=== PATIENT | female | born 1980 | race African-American/Black ===

== ENCOUNTER 2019-05-12 22:04 | Emergency (ER) | payer SELFPAY ==
[2019-05-13 00:48] LABS: ABSOLUTE BASOPHILS # (AUTO) 0.1 10^3/uL (0.0-0.2); ABSOLUTE EOSINOPHILS # (AUTO) 0.2 10^3/uL (0.0-0.6); ABSOLUTE LYMPHOCYTES (AUTO) 3.2 10^3/uL (0.5-4.7); ABSOLUTE MONOCYTES (AUTO) 1.1 10^3/uL (0.1-1.4); ABSOLUTE NEUT (AUTO) 10.9 10^3/uL (1.7-8.2); BASOPHILS % (AUTO) 0.5 % (0-2); EOSINOPHILS % (AUTO) 1.2 % (0-6); HEMATOCRIT 34.5 % (36.0-47.0); HEMOGLOBIN 11.9 g/dL (12.0-15.5); LYMPHOCYTES % (AUTO) 20.6 % (13-45); MEAN CORPUSCULAR HEMOGLOBIN 30.1 pg (27.0-33.4); MEAN CORPUSCULAR HGB CONC 34.4 g/dL (32.0-36.0); MEAN CORPUSCULAR VOLUME 88 fl (80-97); PLATELET COUNT 264 10^3/uL (150-450); RED BLOOD COUNT 3.95 10^6/uL (3.72-5.28); RED CELL DISTRIBUTION WIDTH 13.6 % (11.5-14.0); SEGMENTED NEUTROPHILS % (AUTO) 70.7 % (42-78); TOTAL CELLS COUNTED % (AUTO) 100 %; WHITE BLOOD COUNT 15.4 10^3/uL (4.0-10.5)
[2019-05-13 00:51] LABS: APPEARANCE,URINE SLIGHTLY-CLOUDY; BILIRUBIN,URINE NEGATIVE (NEGATIVE); COLOR,URINE YELLOW; GLUCOSE, URINE NEGATIVE (NEGATIVE); KETONES,URINE NEGATIVE (NEGATIVE); LEUKOCYTE ESTERASE,URINE NEGATIVE (NEGATIVE); NITRITE,URINE NEGATIVE (NEGATIVE); PROTEIN,URINE NEGATIVE (NEGATIVE); URINE SPECIFIC GRAVITY 1.016; UROBILINOGEN,URINE NEGATIVE mg/dL (<2.0)
[2019-05-13 01:16] LABS: ALBUMIN 4.2 g/dL (3.5-5.0); ALKALINE PHOSPHATASE 46 U/L (38-126); ANION GAP 10 (5-19); ASPARTATE AMINO TRANSFERASE 19 U/L (14-36); BILIRUBIN,DIRECT 0.2 mg/dL (0.0-0.4); BILIRUBIN,TOTAL 0.3 mg/dL (0.2-1.3); BLOOD UREA NITROGEN 6 mg/dL (7-20); CALCIUM 9.5 mg/dL (8.4-10.2); CARBON DIOXIDE 25 mmol/L (22-30); CHLORIDE 105 mmol/L (98-107); GLUCOSE 84 mg/dL (75-110); POTASSIUM 3.4 mmol/L (3.6-5.0)
--- NOTE | 2019-05-13 03:18 | RADIOLOGY REPORT (SQ) ---
EXAM DESCRIPTION: US TRANSVAGINAL COMPLETED DATE/TME: 05/13/2019 00:32 CLINICAL HISTORY: 39 years, Female, lmp nov 8, , vaginal bleeding COMPARISON: None. TECHNIQUE: Emergent OB ultrasound LIMITATIONS: None. FINDINGS: The uterus measures 10.7 x 5.9 x 7.1 cm. There is an intrauterine gestational sac with pole and heart tones obtained at 136 bpm. The maternal right ovary measures 4.3 x 1.4 x 1.7 cm. Normal flow to the right ovary. Left ovary is not well seen likely due to its position in the pelvis. Probable corpus luteal cyst as well as possible paraovarian cyst on the right, measuring 1.8 x 1.2 cm. There is a 1.6 x 1.8 cm hypoechoic area adjacent to the gestational sac which may reflect small subchorionic hemorrhage. No free fluid in the pelvis. Current ultrasound age is 7 weeks 1 day. IMPRESSION: Single live IUP as above. Probable small subchorionic hemorrhage. Close obstetric follow-up recommended copyright 2010 [employer]- All Rights Reserved
--- NOTE | 2019-05-13 04:14 | ER Document Report ---
ED GI/ - General Chief Complaint: Vaginal Bleeding Stated Complaint: VAGINAL BLEEDING - Time Seen by Provider: 05/13/19 03:13 Notes: Patient is a 39-year-old female that comes emergency she denies trauma. She denies any current symptoms. Department for chief complaint of vaginal bleeding and cramping that started tonight. She is A3 at 7 weeks gestation by last menstrual period. She states she has had an ectopic before and she just wanted to be checked to make sure she was okay. She is on vitamins, she does smoke, she denies any prescribed any medications. She does report a lot of morning sickness. - Related Data Allergies/Adverse Reactions: No Known Allergies Allergy (Unverified 04/22/12 19:33) Past Medical History - General Information source: Patient - Social History Smoking Status: Former Smoker Frequency of alcohol use: None Drug Abuse: None Lives with: Family Family History: Reviewed & Not Pertinent Patient has suicidal ideation: No Patient has homicidal ideation: No Pulmonary Medical History: Reports: Hx Asthma, Hx Bronchitis - Immunizations Hx Diphtheria, Pertussis, Tetanus Vaccination: Yes - 04/03/12 Review of Systems - Review of Systems Constitutional: No symptoms reported EENT: No symptoms reported Cardiovascular: No symptoms reported Respiratory: No symptoms reported Gastrointestinal: See HPI Genitourinary: See HPI Female Genitourinary: See HPI Musculoskeletal: No symptoms reported Skin: No symptoms reported Hematologic/Lymphatic: No symptoms reported Neurological/Psychological: No symptoms reported Physical Exam - Vital signs Vitals: Temp Pulse Resp BP Pulse Ox 98.4 F 77 20 131/59 H 100 05/12/19 22:42 05/12/19 22:42 05/12/19 22:42 05/12/19 22:42 05/12/19 22:42 - Notes Notes: GENERAL: Alert, interacts well. No acute distress. HEAD: Normocephalic, atraumatic. EYES: Pupils equal, round, and reactive to light. Extraocular movements intact. ENT: Oral mucosa dry, tongue midline. Oropharynx unremarkable. Airway patent. NECK: Full range of motion. Supple. Trachea midline. LUNGS: Clear to auscultation bilaterally, no wheezes, rales, or rhonchi. No respiratory distress. HEART: Regular rate and rhythm. No murmur ABDOMEN: Soft, non-tender. Non-distended. Bowel sounds present in all 4 quadrants. GENITOURINARY: Deferred EXTREMITIES: Moves all 4 extremities spontaneously. No edema, normal radial and dorsalis pedis pulses bilaterally. No cyanosis. BACK: no cervical, thoracic, lumbar midline tenderness. No saddle anesthesia, normal distal neurovascular exam. Moves all extremities in full range of motion. NEUROLOGICAL: Alert and oriented x3. Normal speech. Cranial nerves II through XII grossly intact. PSYCH: Normal affect, normal mood. SKIN: Warm, dry, normal turgor. No rashes or lesions noted. Course - Re-evaluation Re-evalutation: CBC does show leukocytosis of 15,000. Nonspecific given patient's completely benign abdomen, lack of symptoms on my evaluation, and reported vomiting recently. Her urine is still unremarkable. She states she is trying to keep up with hydration. RhoGam not indicated. Chemistry nonspecific. Ultrasound showing IUP with small subchorionic hemorrhage. Provided with details, discussed results. Patient states appreciation and request discharge. Discussed follow-up and return precautions. Stable time of discharge. - Vital Signs Vital signs: Temp Pulse Resp BP Pulse Ox 98.1 F 54 L 20 112/63 100 05/13/19 04:23 05/13/19 04:23 05/13/19 04:23 05/13/19 04:23 05/13/19 04:23 - Laboratory Result Diagrams: 05/13/19 00:30 05/13/19 00:30 Laboratory results interpreted by me: 05/13/19 05/13/19 05/13/19 00:30 00:30 00:30 WBC 15.4 H Hgb 11.9 L Hct 34.5 L Absolute Neuts (auto) 10.9 H Potassium 3.4 L BUN 6 L Beta HCG, Quant 960632.00 H Urine Blood SMALL H Discharge - Discharge Clinical Impression: Vaginal bleeding affecting early Condition: Stable Disposition: HOME, SELF-CARE Additional Instructions: You have a living in the uterus at this time. There is also a subchorionic bleed as we discussed. Please perform pelvic precautions (avoid any intense physical activity, take your nausea medication to avoid vomiting, avoid sexual intercourse, etc. until cleared by [facility]). Follow-up closely with your appointment for [facility] [facility]. Take your vitamins. Stop smoking. Return for any concerning or worsening symptoms including severe pain, heavy bleeding, dizziness or passing out, or any other concerning or worsening symptoms. Prescriptions: Metoclopramide HCl [Reglan] 5 mg PO ASDIR PRN #30 tablet PRN Reason:
[2019-05-13 04:23] VITALS: BP 112/63
== END 2019-05-13 04:22 | disposition home or self-care (01) ==
LOC: ER 22:04
DX: O20.8 Other hemorrhage in early pregnancy (principal); O21.9 Vomiting of pregnancy, unspecified; O99.511 Diseases of the respiratory system complicating pregnancy, first trimester; J45.909 Unspecified asthma, uncomplicated; Z3A.01 Less than 8 weeks gestation of pregnancy; Z79.899 Other long term (current) drug therapy; Z87.891 Personal history of nicotine dependence; Z87.59 Personal history of other complications of pregnancy, childbirth and the puerperium
CPT/HCPCS: 36415; 76817; 80053; 81001; 84702; 85025; 86900; 86901; 93976; 99284

== ENCOUNTER → 2019-08-21 | Outpatient (CLI) | payer SELFPAY ==
--- NOTE | 2019-08-21 14:01 | RADIOLOGY REPORT (SQ) ---
EXAM DESCRIPTION: U/S OB 14+ TRNABD 1GES W/O DOP IMAGES COMPLETED DATE/TIME: 08/21/2019 1:43 pm REASON FOR STUDY: Z34.82 ENCOUNTER FOR SUPRVSN OF NORMAL , SECOND TRIMESTER Z34.82 ENCOUNT ER FOR SUPRVSN OF NORMAL , SECOND TRI COMPARISON: None. TECHNIQUE: Static and Dynamic grayscale imaging performed of gravid uterus using transabdominal appr oach. Additional selected color Doppler and spectral images recorded. All stored on PACS. LIMITATIONS: None. FINDINGS: FETUSES SEEN:1 EGA: 21 weeks 5 days. Calculated using BPD,FL,HC,AC documented on images. No discrepancy with clinic al dates. BECK: 12/27/2019 EFW: 470 grams BRIANNA: 11.7 cm. PLACENTA: Posterior. GRADE: I PRESENTATION: Breech. ANATOMY: HEART RATE: 152 beats per minute. FOUR CHAMBER HEART: Visualized. THREE VESSEL CORD: Yes. CORD INSERTION: Visualized. KIDNEYS AND BLADDER: Visualized. Appear normal. STOMACH: Visualized. Appears normal. SPINE: Normal as visualized. BRAIN AND LATERAL VENTRICLES: Visualized. Appear normal. OTHER: No other significant finding. MATERNAL ADNEXA: Maternal ovaries not visualized. CERVICAL LENGTH: 4.6 cm. Closed. OTHER: No other significant finding. IMPRESSION: LIVING INTRAUTERINE . ESTIMATED GESTATIONAL AGE 21 WEEKS 5 DAYS. NO VISUALIZED ANOMALIES. Trimester of : Second trimester - 13 weeks 1 day to 27 weeks 6 days. TECHNICAL DOCUMENTATION: JOB ID: [id number] 2010 [employer]- All Rights Reserved Reading location - IP/workstation name: [email or web address]
== END ==
LOC: RAD 12:38
PROVIDERS: ATTEND Nurse Practitioner Family
DX: Z34.82 Encounter for supervision of other normal pregnancy, second trimester (principal); Z3A.21 21 weeks gestation of pregnancy
CPT/HCPCS: 76805

== ENCOUNTER 2019-11-25 21:36 | Outpatient (CLI) | payer MEDICAID ==
[2019-11-25 22:05] LABS: APPEARANCE,URINE SLIGHTLY-CLOUDY; BILIRUBIN,URINE NEGATIVE (NEGATIVE); COLOR,URINE YELLOW; GLUCOSE, URINE NEGATIVE (NEGATIVE); KETONES,URINE NEGATIVE (NEGATIVE); LEUKOCYTE ESTERASE,URINE NEGATIVE (NEGATIVE); NITRITE,URINE NEGATIVE (NEGATIVE); PROTEIN,URINE NEGATIVE (NEGATIVE); URINE SPECIFIC GRAVITY 1.005
[2019-11-25 22:27] LABS: URINE AMPHETAMINES SCREEN NEGATIVE; URINE BARBITURATES SCREEN NEGATIVE; URINE BENZODIAZEPINES SCREEN NEGATIVE; URINE COCAINE SCREEN NEGATIVE; URINE MARIJUANA (THC) SCREEN NEGATIVE; URINE METHADONE SCREEN NEGATIVE; URINE PHENCYCLIDINE SCREEN NEGATIVE
--- NOTE | 2019-11-25 22:42 | Non Stress Test Report ---
Non Stress Test Datetime Report Generated by CPN: 11/25/2019 22:42 DEMOGRAPHIC Test Number: 1 EGA NST: 35.1 INDICATION Indication for Study (NST) Other: lc URINE RESULTS Urine Protein, NST: Negative Urine Ketones - NST: Negative Urine Glucose - NST: Negative Urine Blood - NST: Negative MONITORING Monitor Explained: Monitor Explained; Test Explained; Patient Verbalized Understanding Time on Monitor: 11/25/2019 21:53 Time off Monitor: 11/25/2019 22:37 NST Duration: 44 NST INTERVENTIONS NST Interventions: PO Hydration Physician Notified NST: Dr. Mcintyre BABY A: [id number] BABY A Movement : Present Contraction Frequency : none FHR Baseline : 135 Accelerations : 15X15 Decelerations : None Variability : Moderate 6-25bpm NST Review: Meets Criteria for Reactive NST NST Review and Verified By : Cory Reed RN NST Results: Reactive NST REPORT Report Trigger: Send Report
== END 2019-11-25 22:51 | disposition home or self-care (01) ==
LOC: LC 21:36
PROVIDERS: ATTEND Obstetrics & Gynecology
DX: O13.3 Gestational [pregnancy-induced] hypertension without significant proteinuria, third trimester (principal); Z3A.35 35 weeks gestation of pregnancy; R51 Headache
CPT/HCPCS: 59025; 80307; 81001

== ENCOUNTER 2019-11-28 10:24 | Observation (INO) | payer MEDICAID ==
[2019-11-28] MEDS ORDERED: ACETAMINOPHEN 325 MG TABLET ONE (10:51)
[2019-11-28] MEDS ORDERED: ACETAMINOPHEN 325 MG TABLET PO ONE (10:54)
[2019-11-28 11:29] LABS: ABSOLUTE BASOPHILS # (AUTO) 0.1 10^3/uL (0.0-0.2); ABSOLUTE EOSINOPHILS # (AUTO) 0.1 10^3/uL (0.0-0.6); ABSOLUTE LYMPHOCYTES (AUTO) 2.2 10^3/uL (0.5-4.7); ABSOLUTE MONOCYTES (AUTO) 0.7 10^3/uL (0.1-1.4); ABSOLUTE NEUT (AUTO) 8.5 10^3/uL (1.7-8.2); BASOPHILS % (AUTO) 0.4 % (0-2); EOSINOPHILS % (AUTO) 0.8 % (0-6); HEMATOCRIT 29.2 % (36.0-47.0); HEMOGLOBIN 10.4 g/dL (12.0-15.5); MEAN CORPUSCULAR HEMOGLOBIN 30.8 pg (27.0-33.4); MEAN CORPUSCULAR HGB CONC 35.5 g/dL (32.0-36.0); MEAN CORPUSCULAR VOLUME 87 fl (80-97); MONOCYTES % (AUTO) 5.7 % (3-13); PLATELET COUNT 277 10^3/uL (150-450); RED BLOOD COUNT 3.36 10^6/uL (3.72-5.28); RED CELL DISTRIBUTION WIDTH 12.7 % (11.5-14.0); SEGMENTED NEUTROPHILS % (AUTO) 74.1 % (42-78); TOTAL CELLS COUNTED % (AUTO) 100 %; WHITE BLOOD COUNT 11.4 10^3/uL (4.0-10.5)
[2019-11-28 11:52] LABS: ALBUMIN 3.1 g/dL (3.5-5.0); ALKALINE PHOSPHATASE 100 U/L (38-126); ANION GAP 5 (5-19); ASPARTATE AMINO TRANSFERASE 23 U/L (14-36); BILIRUBIN,TOTAL 0.3 mg/dL (0.2-1.3); CARBON DIOXIDE 23 mmol/L (22-30); CHLORIDE 105 mmol/L (98-107); GLUCOSE 77 mg/dL (75-110); URIC ACID 4.3 mg/dL (2.5-7.0)
[2019-11-28 11:53] LABS: BLOOD UREA NITROGEN < 2 mg/dL (7-20)
[2019-11-28 11:54] LABS: POTASSIUM 2.7 mmol/L (3.6-5.0)
[2019-11-28] MEDS ORDERED: FAMOTIDINE INJ/PF 20 MG/2 ML SDV IV ONE (12:01)
[2019-11-28] MEDS ORDERED: PROMETHAZINE HCL 25 MG SUPP.RECT PR PRN (12:16)
[2019-11-28] MEDS ORDERED: RINGERS SOLUTION,LACTATED 1,000 ML IV PRN (12:17)
[2019-11-28] MEDS ORDERED: RINGERS SOLUTION,LACTATED 1,000 ML IV ONE (12:17)
--- NOTE | 2019-11-28 12:42 | Admission Physical ---
Datetime Report Generated by CPN: 11/28/2019 12:41 CURRENT ADMISSION Chief Complaint: Other Chief Complaint Other: sent from the office for PreE w/u Indication for Induction: Not Applicable Admit Impression : , Intrauterine Admit Plan: Admit to Unit; Observation/Evaluation Admit Plan- Other: Now reports n/v since the keyonna before 4th - on 7/3 ALLERGIES Medication Allergies: No Medication Allergies: No Known Allergies (11/28/2019) Latex: No Latex Allergies OBSTETRICAL HISTORY EDC: 12/29/2019 00:00 : 6 Para: 2 Term: 2 : 0 SAB: 2 IAB: 0 Ectopic: 1 Livin Cesareans: 0 VBACs: 0 Multiple Births: 0 Gestational Diabetes: No Rh Sensitization: No Incompetent Cervix: No STACEY: No Infertility: No ART Treatment: No Uterine Anomaly: No IUGR: No Hx Previous C/S: No Macrosomia: No Hx Loss/Stillborn: No PIH: No Hx : No Placenta Previa/Abruption: No Depression/PP Depression: No PTL/PROM: No Post Hemorrhage: No Current Procedures: Ultrasound Obstetrical History Comments: G1: 1996 SAB G2: 1998 G3: 2004 SAB G4: 2009 ECTOPIC G5: 2011 G6: current SEE RECORDS Alcohol: No Marijuana : No Cocaine: No Other Illicit Drugs: No Cigarettes: Current Some Day Smoker. 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 Surgery: No Heart Disease: No Hosp/Surgery: Yes Autoimmune Disorder: No Anesthetic Complications: No Kidney Disease: Yes Abnormal Pap Smear: No Neuro/Epilepsy: No Psychiatric Disorders: No Other Medical Diseases: No Hepatitis/Liver Disease: No Significant Family History: No Varicosities/Phlebitis: No Trauma/Violence : No Thyroid Dysfunction: No Medical History Comments: UTI, childbirth INFECTIOUS HISTORY Gonorrhea: No Genital Herpes: No Chlamydia: No Tuberculosis: No Syphilis: No Hepatitis: No HIV/AIDS Exposure: No Rash or Viral Illness: No HPV: Yes Infectious History Comments: HPV PHYSICAL EXAM General: Normal HEENT: Normal Neurologic: Normal Thyroid: Deferred Heart: Normal Lungs: Normal Breast: Deferred Back: Normal Abdomen: Normal Genitourinary Exam: Normal Extremities: Normal DTRs: Normal Pelvic Type: Adequate Vital Signs: Reviewed MEMBRANES Membranes: Intact FETUS A EGA: 35.4 Monitoring: External US FHR- Baseline: 120 Variability: Moderate 6-25bpm Accelerations: 15X15 Decelerations: None FHR Category: Category I Admit Comment: 39yo at 35+4 egarpit presents from the office for PreE w/u due to elevated 24 hr UTP. However, on arrival BPs were normal. Normal HR. NST reactive. She however reports n/v initially for 24 hours but after labs reviewed with patient and significantly abnl electrolytes, the patient now reports that it has been going on since before the 17 of november. Will obtain consult from Hospitalist. Also will obtain EKG. banana bag ordered. PLANS FOR LABOR AND DELIVERY Labor and Delivery: None Pain Management: Epidural Feeding Preference: Formula INFORMED CONSENT Informed Consent Obtained: Risks, Benefits and Alternatives Discussed Signature: with User ID: Addie
[2019-11-28 12:47] LABS: APPEARANCE,URINE CLEAR; BILIRUBIN,URINE NEGATIVE (NEGATIVE); COLOR,URINE STRAW; GLUCOSE, URINE NEGATIVE (NEGATIVE); KETONES,URINE NEGATIVE (NEGATIVE); LEUKOCYTE ESTERASE,URINE NEGATIVE (NEGATIVE); NITRITE,URINE NEGATIVE (NEGATIVE); PROTEIN,URINE NEGATIVE (NEGATIVE); URINE SPECIFIC GRAVITY 1.003; UROBILINOGEN,URINE NEGATIVE mg/dL (<2.0)
--- NOTE | 2019-11-28 13:06 | PDOC CONSULTATION ---
Consultation Consult Date: 11/28/19 Attending physician:: RACH COOLEY Provider Consulted: ANIVAL MORALEZ Consult reason:: Hypokalemia and hypomagnesemia History of Present Illness Admission Date/PCP: ABBEY MORA Patient complains of: 39-year-old female admitted to labor and delivery c/o. Nausea vomiting's and diarrhea. History of Present Illness: FLORINDA VENTURA is a 39 year old female in third trimester no significant past medical history admitted to labor and delivery at this morning. Patient complaining of nausea and vomitings going on for several weeks and loose stools for the last couple of days. Lab work shows serum potassium of 2.7, serum magnesium of 1.8 and a medical consult was called for management of the arnoldo ctrolytes. Patient is also hypertensive blood pressure is 96/54 on Ringer lactate. Patient is receiving IV promethazine for nausea and vomiting's. EKG shows sinus rhythm. Patient denies any abdominal pains. Past Medical History Pulmonary Medical History: Reports: Asthma, Bronchitis EENT Medical History: Reports: None Neurological Medical History: Reports: None Endocrine Medical History: Reports: None Malignancy Medical History: Reports: None GI Medical History: Reports: None Musculoskeltal Medical History: Reports: None Skin Medical History: Reports: None Past Surgical History Past Surgical History: Reports: None Social History Information Source: Patient Smoking Status: Former Smoker Frequency of Alcohol Use: None Hx Recreational Drug Use: No Hx Prescription Drug Abuse: No - Advance Directive Resuscitation Status: Full Code Family History Family History: Reviewed & Not Pertinent Parental Family History Reviewed: Yes - Mother with congestive heart failure Children Family History Reviewed: Yes Sibling(s) Family History Reviewed.: Yes Medication/Allergy Home Medications: Vit,Calc76/Iron/Folic [Pnv 29-1 Tablet] 1 tab PO DAILY 11/25/19 Allergies/Adverse Reactions: No Known Allergies Allergy (Verified 11/28/19 10:33) Review of Systems Constitutional: ABSENT: fever(s) Eyes: ABSENT: visual disturbances Ears: ABSENT: hearing changes Nose, Mouth, and Throat: ABSENT: sore throat Cardiovascular: ABSENT: chest pain, edema Respiratory: ABSENT: dyspnea Gastrointestinal: PRESENT: diarrhea, nausea, vomiting Genitourinary: ABSENT: dysuria, hematuria Musculoskeletal: ABSENT: joint swelling Integumentary: ABSENT: rash, wounds Neurological: ABSENT: abnormal gait, abnormal speech, confusion, dizziness, focal weakness, syncope Psychiatric: ABSENT: anxiety, depression, homidical ideation, suicidal ideation Physical Exam Vital Signs: Intake & Output 11/27/19 11/28/19 11/29/19 06:59 06:59 06:59 Weight 83 kg General appearance: PRESENT: no acute distress, cooperative, well-developed Head exam: PRESENT: atraumatic Eye exam: PRESENT: PERRLA Mouth exam: PRESENT: moist, tongue midline Neck exam: ABSENT: carotid bruit, JVD, lymphadenopathy, thyromegaly Respiratory exam: PRESENT: clear to auscultation katerin. ABSENT: rales, rhonchi, wheezes Cardiovascular exam: PRESENT: RRR. ABSENT: diastolic murmur, rubs, systolic murmur Pulses: PRESENT: normal dorsalis pedis pul GI/Abdominal exam: PRESENT: distended - Abdominal examination indicated of advanced ., other - Bowel sounds are present. Rectal exam: PRESENT: deferred Extremities exam: PRESENT: full ROM. ABSENT: calf tenderness, clubbing, pedal edema Neurological exam: PRESENT: alert, awake, oriented to person, oriented to place, oriented to time, oriented to situation, CN II-XII grossly intact. ABSENT: motor sensory deficit Psychiatric exam: PRESENT: appropriate affect, normal mood. ABSENT: homicidal ideation, suicidal ideation Results Laboratory Results: 11/28/19 11:09 11/28/19 11:09 11/28/19 11/28/19 11/28/19 11:09 11:09 11:09 WBC 11.4 H RBC 3.36 L Hgb 10.4 L Hct 29.2 L MCV 87 MCH 30.8 MCHC 35.5 RDW 12.7 Plt Count 277 Seg Neutrophils % 74.1 Sodium 133.3 L Potassium 2.7 L* Chloride 105 Carbon Dioxide 23 Anion Gap 5 BUN < 2 L Creatinine 0.48 L Est GFR ( Amer) > 60 Glucose 77 Uric Acid 4.3 Calcium 9.0 Magnesium 1.4 L Total Bilirubin 0.3 AST 23 Alkaline Phosphatase 100 Total Protein 6.0 L Albumin 3.1 L Amylase 44 Lipase 78.5 Urine Color Urine Appearance Urine pH Ur Specific [place] Urine Protein Urine Glucose (UA) Urine Ketones Urine Blood Urine Nitrite Ur Leukocyte Esterase Urine WBC (Auto) Urine RBC (Auto) 11/28/19 12:18 WBC RBC Hgb Hct MCV MCH MCHC RDW Plt Count Seg Neutrophils % Sodium Potassium Chloride Carbon Dioxide Anion Gap BUN Creatinine Est GFR ( Amer) Glucose Uric Acid Calcium Magnesium Total Bilirubin AST Alkaline Phosphatase Total Protein Albumin Amylase Lipase Urine Color STRAW Urine Appearance CLEAR Urine pH 8.0 Ur Specific [place] 1.003 Urine Protein NEGATIVE Urine Glucose (UA) NEGATIVE Urine Ketones NEGATIVE Urine Blood NEGATIVE Urine Nitrite NEGATIVE Ur Leukocyte Esterase NEGATIVE Urine WBC (Auto) 1 Urine RBC (Auto) 1 Assessment and Plan - Diagnosis (1) Third trimester Is this a current diagnosis for this admission?: Yes Plan: 11/28/2019-patient is in third trimester, almost close to 36 weeks of . Further management as per OBG. (2) Hypokalemia Is this a current diagnosis for this admission?: Yes Plan: 11/28/2019-serum potassium is 2.7 to give 40 mg of IV potassium. To repeat the labs tomorrow. Patient is also receiving Ringer lactate which has potassium. EKG shows sinus rhythm. (3) Hypomagnesemia Is this a current diagnosis for this admission?: Yes Plan: 11/28/2019-serum magnesium is 1.4 to give IV magnesium 2 g. To recheck the labs tomorrow. (4) Hypotension Is this a current diagnosis for this admission?: Yes Plan: 11/28/2019-blood pressure today is 96/54. Hypotensive receiving Ringer lactate. Asymptomatic. (5) Hyponatremia Is this a current diagnosis for this admission?: Yes Plan: 11/28/2019-serum sodium is 133.3 close to normal. Plan is to recheck labs tomorrow. At this moment patient is receiving Ringer lactate. (6) Nausea & vomiting Is this a current diagnosis for this admission?: Yes Plan: 11/28/2019-patient came in with complaints of several weeks of nausea vomiting's. Presently on promethazine. Denies any nausea vomiting at the time of my examination.
[2019-11-28 13:09] LABS: URINE AMPHETAMINES SCREEN NEGATIVE; URINE BARBITURATES SCREEN NEGATIVE; URINE BENZODIAZEPINES SCREEN NEGATIVE; URINE COCAINE SCREEN NEGATIVE; URINE MARIJUANA (THC) SCREEN NEGATIVE; URINE METHADONE SCREEN NEGATIVE; URINE PHENCYCLIDINE SCREEN NEGATIVE
[2019-11-28] MEDS: POTASSI CL 20 MEQ/50 ML RIDER 20 MEQ/50 ML RTUPB IV SCH ×2 (14:02→18:56)
--- NOTE | 2019-11-28 14:33 | EKG REPORT ---
SEVERITY:- NORMAL ECG - SINUS BRADYCARDIA : Confirmed by: Lalo Lyon MD 28-Nov-2019 14:31:35
[2019-11-28] MEDS: MAGNESIUM SULFATE/D5W 1 GM/100 ML RTUPB IV SCH ×2 (15:59→18:54)
[2019-11-28] MEDS ORDERED: NORMAL SALINE 1000 ML 1,000 ML with THIAMINE HCL 100 MG, MVI, ADULT NO.1 WITH VIT K 10 ... IV SCH ×4 (18:00)
[2019-11-28 20:06] LABS: ALBUMIN 3.3 g/dL (3.5-5.0); ALKALINE PHOSPHATASE 117 U/L (38-126); ANION GAP 7 (5-19); ASPARTATE AMINO TRANSFERASE 23 U/L (14-36); BILIRUBIN,TOTAL 0.4 mg/dL (0.2-1.3); CALCIUM 8.7 mg/dL (8.4-10.2); CARBON DIOXIDE 23 mmol/L (22-30); CHLORIDE 106 mmol/L (98-107); GLUCOSE 111 mg/dL (75-110); POTASSIUM 3.2 mmol/L (3.6-5.0); TOTAL PROTEIN 6.4 g/dL (6.3-8.2)
[2019-11-28 20:09] LABS: BLOOD UREA NITROGEN < 2 mg/dL (7-20)
[2019-11-29 07:40] VITALS: BP 116/59
[2019-11-29] MEDS ORDERED: MAGNESIUM SULFATE/D5W 1 GM/100 ML RTUPB IV ONE ×2 (08:00→16:00)
[2019-11-29 08:55] LABS: ABSOLUTE EOSINOPHILS # (AUTO) 0.1 10^3/uL (0.0-0.6); ABSOLUTE LYMPHOCYTES (AUTO) 2.4 10^3/uL (0.5-4.7); ABSOLUTE MONOCYTES (AUTO) 0.7 10^3/uL (0.1-1.4); ABSOLUTE NEUT (AUTO) 6.7 10^3/uL (1.7-8.2); BASOPHILS % (AUTO) 0.3 % (0-2); EOSINOPHILS % (AUTO) 1.4 % (0-6); HEMATOCRIT 28.2 % (36.0-47.0); LYMPHOCYTES % (AUTO) 24.3 % (13-45); MEAN CORPUSCULAR HGB CONC 35.4 g/dL (32.0-36.0); MEAN CORPUSCULAR VOLUME 88 fl (80-97); PLATELET COUNT 248 10^3/uL (150-450); RED BLOOD COUNT 3.22 10^6/uL (3.72-5.28); RED CELL DISTRIBUTION WIDTH 13.1 % (11.5-14.0); TOTAL CELLS COUNTED % (AUTO) 100 %; WHITE BLOOD COUNT 10.1 10^3/uL (4.0-10.5)
[2019-11-29 09:20] LABS: ALBUMIN 2.6 g/dL (3.5-5.0); ALKALINE PHOSPHATASE 94 U/L (38-126); ANION GAP 5 (5-19); ASPARTATE AMINO TRANSFERASE 20 U/L (14-36); BILIRUBIN,TOTAL 0.2 mg/dL (0.2-1.3); BLOOD UREA NITROGEN 3 mg/dL (7-20); CALCIUM 8.3 mg/dL (8.4-10.2); CARBON DIOXIDE 23 mmol/L (22-30); CHLORIDE 109 mmol/L (98-107); GLUCOSE 96 mg/dL (75-110); TOTAL PROTEIN 5.2 g/dL (6.3-8.2)
[2019-11-29 09:25] LABS: POTASSIUM 2.8 mmol/L (3.6-5.0)
--- NOTE | 2019-11-29 09:33 | PDOC PROGRESS REPORT ---
Subjective Progress Note for:: 11/29/19 Subjective:: 39 year old female in third trimester no significant past medical history admitted to labor and delivery at this morning. Patient complaining of nausea and vomitings going on for several weeks and loose stools for the last couple of days. Lab work shows serum potassium of 2.7, serum magnesium of 1.8 and a medical consult was called for management of the electrolytes. Patient is also hypertensive blood pressure is 96/54 on Ringer lactate. Patient is receiving IV promethazine for nausea and vomiting's. EKG shows sinus rhythm. Patient denies any abdominal pains. 11/29/2019-medical consult was called for hypokalemia and hypomagnesemia. Patient received 40 mEq of IV K rider potassium went up to 3.2 yesterday evening but this morning potassium dropped back to 2.8. Patient is receiving 40 mEq of IV potassium at this time and to give another dose of IV potassium around 3 PM today. Plan is to recheck the labs this evening around 7 PM. Patient received 2 g of IV magnesium and a magnesium level improved from 1.4-1.7. Patient is receiving 1 g of IV magnesium this morning and to recheck the labs tomorrow. She is comfortably in the bed communicating well complaining of back pain especially lower back pain and discomfort in both hands. Reason For Visit: Physical Exam Vital Signs: Temp Pulse Resp BP Pulse Ox 98.0 F 58 L 16 116/59 L 100 11/29/19 07:48 11/29/19 07:48 11/29/19 07:48 11/29/19 07:48 11/29/19 07:48 Intake & Output 11/28/19 11/29/19 11/30/19 06:59 06:59 06:59 Intake Total 1130 Balance 1130 Weight 83 kg General appearance: PRESENT: no acute distress, cooperative, well-developed Head exam: PRESENT: atraumatic Eye exam: PRESENT: PERRLA Ear exam: PRESENT: normal external ear exam Mouth exam: PRESENT: neck supple Teeth exam: PRESENT: poor dentation Neck exam: ABSENT: carotid bruit, JVD, lymphadenopathy, thyromegaly Respiratory exam: PRESENT: clear to auscultation katerin. ABSENT: rales, rhonchi, wheezes Cardiovascular exam: PRESENT: RRR. ABSENT: diastolic murmur, rubs, systolic murmur GI/Abdominal exam: PRESENT: normal bowel sounds, other - Abdomen with advanced . Rectal exam: PRESENT: deferred Extremities exam: PRESENT: full ROM. ABSENT: calf tenderness, clubbing, pedal edema Neurological exam: PRESENT: alert, awake, oriented to person, oriented to place, oriented to time, oriented to situation, CN II-XII grossly intact. ABSENT: motor sensory deficit Psychiatric exam: PRESENT: appropriate affect, normal mood. ABSENT: homicidal ideation, suicidal ideation Results Laboratory Results: 11/29/19 08:21 11/29/19 08:21 11/28/19 11/28/19 11/28/19 11:09 11:09 11:09 WBC 11.4 H RBC 3.36 L Hgb 10.4 L Hct 29.2 L MCV 87 MCH 30.8 MCHC 35.5 RDW 12.7 Plt Count 277 Seg Neutrophils % 74.1 Sodium 133.3 L Potassium 2.7 L* Chloride 105 Carbon Dioxide 23 Anion Gap 5 BUN < 2 L Creatinine 0.48 L Est GFR ( Amer) > 60 Glucose 77 Uric Acid 4.3 Calcium 9.0 Magnesium 1.4 L Total Bilirubin 0.3 AST 23 Alkaline Phosphatase 100 Total Protein 6.0 L Albumin 3.1 L Amylase 44 Lipase 78.5 Urine Color Urine Appearance Urine pH Ur Specific [place] Urine Protein Urine Glucose (UA) Urine Ketones Urine Blood Urine Nitrite Ur Leukocyte Esterase Urine WBC (Auto) Urine RBC (Auto) 11/28/19 11/28/19 11/29/19 12:18 19:22 08:21 WBC 10.1 RBC 3.22 L Hgb 10.0 L Hct 28.2 L MCV 88 MCH 31.0 MCHC 35.4 RDW 13.1 Plt Count 248 Seg Neutrophils % 67.0 Sodium 135.5 L Potassium 3.2 L Chloride 106 Carbon Dioxide 23 Anion Gap 7 BUN < 2 L Creatinine 0.56 Est GFR ( Amer) > 60 Glucose 111 H Uric Acid Calcium 8.7 Magnesium Total Bilirubin 0.4 AST 23 Alkaline Phosphatase 117 Total Protein 6.4 Albumin 3.3 L Amylase Lipase Urine Color STRAW Urine Appearance CLEAR Urine pH 8.0 Ur Specific [place] 1.003 Urine Protein NEGATIVE Urine Glucose (UA) NEGATIVE Urine Ketones NEGATIVE Urine Blood NEGATIVE Urine Nitrite NEGATIVE Ur Leukocyte Esterase NEGATIVE Urine WBC (Auto) 1 Urine RBC (Auto) 1 11/29/19 08:21 WBC RBC Hgb Hct MCV MCH MCHC RDW Plt Count Seg Neutrophils % Sodium 137.0 Potassium 2.8 L* Chloride 109 H Carbon Dioxide 23 Anion Gap 5 BUN 3 L Creatinine 0.51 L Est GFR ( Amer) > 60 Glucose 96 Uric Acid Calcium 8.3 L Magnesium 1.7 Total Bilirubin 0.2 AST 20 Alkaline Phosphatase 94 Total Protein 5.2 L Albumin 2.6 L Amylase Lipase Urine Color Urine Appearance Urine pH Ur Specific [place] Urine Protein Urine Glucose (UA) Urine Ketones Urine Blood Urine Nitrite Ur Leukocyte Esterase Urine WBC (Auto) Urine RBC (Auto) Assessment and Plan - Diagnosis (1) Third trimester Is this a current diagnosis for this admission?: Yes Plan: 11/28/2019-patient is in third trimester, almost close to 36 weeks of . Further management as per OBG. (2) Hypokalemia Is this a current diagnosis for this admission?: Yes Plan: 11/28/2019-serum potassium is 2.7 to give 40 mg of IV potassium. To repeat the labs tomorrow. Patient is also receiving Ringer lactate which has potassium. EKG shows sinus rhythm. 11/29/2019-serum potassium this morning is 2.8 receiving 40 mg of IV potassium now , to give another 40 mEq around 3 PM today. To repeat labs around 7 PM today. (3) Hypomagnesemia Is this a current diagnosis for this admission?: Yes Plan: 11/28/2019-serum magnesium is 1.4 to give IV magnesium 2 g. To recheck the labs tomorrow. 11/29/2019-serum magnesium this morning is 1.7, to give 1 g of IV magnesium this morning and to repeat the labs tomorrow. (4) Hypotension Is this a current diagnosis for this admission?: Yes Plan: 11/28/2019-blood pressure today is 96/54. Hypotensive receiving Ringer lactate. Asymptomatic. 11/29/2019 patient is on Ringer lactate blood pressure this morning is 110/60. (5) Hyponatremia Is this a current diagnosis for this admission?: Yes Plan: 11/28/2019-serum sodium is 133.3 close to normal. Plan is to recheck labs tomorrow. At this moment patient is receiving Ringer lactate. 11/29/2019-serum sodium is 135.5. Hyponatremia resolved. (6) Nausea & vomiting Is this a current diagnosis for this admission?: Yes Plan: 11/28/2019-patient came in with complaints of several weeks of nausea vomiting's. Presently on promethazine. Denies any nausea vomiting at the time of my examination. 11/29/2019-patient denies any nausea vomiting's this morning.
[2019-11-29] MEDS: POTASSI CL 20 MEQ/50 ML RIDER 20 MEQ/50 ML RTUPB IV SCH ×4 (09:39→16:47)
--- NOTE | 2019-11-29 10:06 | PDOC PROGRESS REPORT ---
Subjective-OB Progress Note for:: 11/29/19 Subjective: Doing better, no c/o, ready to go home Physical Exam (OB) Vital Signs: Temp Pulse Resp BP Pulse Ox 98.0 F 58 L 16 116/59 L 100 11/29/19 07:48 11/29/19 07:48 11/29/19 07:48 11/29/19 07:48 11/29/19 07:48 Intake & Output 11/28/19 11/29/19 11/30/19 06:59 06:59 06:59 Intake Total 1130 Balance 1130 Weight 83 kg Objective-Diagnostic Laboratory: 11/29/19 08:21 11/29/19 08:21 11/28/19 11/28/19 11/28/19 11:09 11:09 11:09 WBC 11.4 H RBC 3.36 L Hgb 10.4 L Hct 29.2 L MCV 87 MCH 30.8 MCHC 35.5 RDW 12.7 Plt Count 277 Seg Neutrophils % 74.1 Sodium 133.3 L Potassium 2.7 L* Chloride 105 Carbon Dioxide 23 Anion Gap 5 BUN < 2 L Creatinine 0.48 L Est GFR ( Amer) > 60 Glucose 77 Uric Acid 4.3 Calcium 9.0 Magnesium 1.4 L Total Bilirubin 0.3 AST 23 Alkaline Phosphatase 100 Total Protein 6.0 L Albumin 3.1 L Amylase 44 Lipase 78.5 Urine Color Urine Appearance Urine pH Ur Specific [place] Urine Protein Urine Glucose (UA) Urine Ketones Urine Blood Urine Nitrite Ur Leukocyte Esterase Urine WBC (Auto) Urine RBC (Auto) 11/28/19 11/28/19 11/29/19 12:18 19:22 08:21 WBC 10.1 RBC 3.22 L Hgb 10.0 L Hct 28.2 L MCV 88 MCH 31.0 MCHC 35.4 RDW 13.1 Plt Count 248 Seg Neutrophils % 67.0 Sodium 135.5 L Potassium 3.2 L Chloride 106 Carbon Dioxide 23 Anion Gap 7 BUN < 2 L Creatinine 0.56 Est GFR ( Amer) > 60 Glucose 111 H Uric Acid Calcium 8.7 Magnesium Total Bilirubin 0.4 AST 23 Alkaline Phosphatase 117 Total Protein 6.4 Albumin 3.3 L Amylase Lipase Urine Color STRAW Urine Appearance CLEAR Urine pH 8.0 Ur Specific [place] 1.003 Urine Protein NEGATIVE Urine Glucose (UA) NEGATIVE Urine Ketones NEGATIVE Urine Blood NEGATIVE Urine Nitrite NEGATIVE Ur Leukocyte Esterase NEGATIVE Urine WBC (Auto) 1 Urine RBC (Auto) 1 11/29/19 08:21 WBC RBC Hgb Hct MCV MCH MCHC RDW Plt Count Seg Neutrophils % Sodium 137.0 Potassium 2.8 L* Chloride 109 H Carbon Dioxide 23 Anion Gap 5 BUN 3 L Creatinine 0.51 L Est GFR ( Amer) > 60 Glucose 96 Uric Acid Calcium 8.3 L Magnesium 1.7 Total Bilirubin 0.2 AST 20 Alkaline Phosphatase 94 Total Protein 5.2 L Albumin 2.6 L Amylase Lipase Urine Color Urine Appearance Urine pH Ur Specific [place] Urine Protein Urine Glucose (UA) Urine Ketones Urine Blood Urine Nitrite Ur Leukocyte Esterase Urine WBC (Auto) Urine RBC (Auto) Assessment and Plan(PN) - Assessment and Plan (1) Hypokalemia Is this a current diagnosis for this admission?: Yes (2) Hypomagnesemia Is this a current diagnosis for this admission?: Yes (3) Hyponatremia Is this a current diagnosis for this admission?: Yes (4) Hypotension Qualifiers: Hypotension type: maternal hypotension of Trimester: third trimester Qualified Code(s): O26.53 - Maternal hypotension syndrome, third trimester Is this a current diagnosis for this admission?: Yes (5) Nausea & vomiting Qualifiers: Vomiting Intractability: unspecified Is this a current diagnosis for this admission?: Yes (6) Third trimester Is this a current diagnosis for this admission?: Yes - Time Spent with Patient Time with patient: Less than 15 minutes Medications reviewed and adjusted accordingly: Yes - Disposition Anticipated Discharge: Home Within: within 24 hours - home today, consulted with Dr. Calixto, regular diet, eat bananas
--- NOTE | 2019-11-29 10:12 | PDOC DISCHARGE SUMMARY ---
Impression - Admit/DC Date/PCP Admission Date/Primary Care Provider: 11/28/19 14:34 ABBEY MORA Discharge Date: 11/29/19 - Discharge Diagnosis (1) Hypokalemia Is this a current diagnosis for this admission?: Yes (2) Hypomagnesemia Is this a current diagnosis for this admission?: Yes (3) Hyponatremia Is this a current diagnosis for this admission?: Yes (4) Hypotension Is this a current diagnosis for this admission?: Yes (5) Nausea & vomiting Is this a current diagnosis for this admission?: Yes (6) Third trimester Is this a current diagnosis for this admission?: Yes - Additional Information Resuscitation Status: Full Code Discharge Diet: As Tolerated, Regular Discharge Activity: Activity As Tolerated Referrals: ROHAN MENDOZA ARNP [Primary Care Provider] - (keep appt at [facility]) Home Medications: Vit,Calc76/Iron/Folic [Pnv 29-1 Tablet] 1 tab PO DAILY 11/25/19 History of Present Illiness History of Present Illness: FLORINDA VENTURA is a 39 year old female Hospital Course Hospital Course: improved, Pre- E resolved Physical Exam - Physical Exam Vital Signs: Temp Pulse Resp BP Pulse Ox 98.0 F 58 L 16 116/59 L 100 11/29/19 07:48 11/29/19 07:48 11/29/19 07:48 11/29/19 07:48 11/29/19 07:48 Intake & Output 11/28/19 11/29/19 11/30/19 06:59 06:59 06:59 Intake Total 1130 Balance 1130 Weight 83 kg Results Laboratory Results: WBC 10.1 10^3/uL (4.0-10.5) 11/29/19 08:21 RBC 3.22 10^6/uL (3.72-5.28) L 11/29/19 08:21 Hgb 10.0 g/dL (12.0-15.5) L 11/29/19 08:21 Hct 28.2 % (36.0-47.0) L 11/29/19 08:21 MCV 88 fl (80-97) 11/29/19 08:21 MCH 31.0 pg (27.0-33.4) 11/29/19 08:21 MCHC 35.4 g/dL (32.0-36.0) 11/29/19 08:21 RDW 13.1 % (11.5-14.0) 11/29/19 08:21 Plt Count 248 10^3/uL (150-450) 11/29/19 08:21 Lymph % (Auto) 24.3 % (13-45) 11/29/19 08:21 [place] % (Auto) 7.0 % (3-13) 11/29/19 08:21 Eos % (Auto) 1.4 % (0-6) 11/29/19 08:21 Baso % (Auto) 0.3 % (0-2) 11/29/19 08:21 Absolute Neuts (auto) 6.7 10^3/uL (1.7-8.2) 11/29/19 08:21 Absolute Lymphs (auto) 2.4 10^3/uL (0.5-4.7) 11/29/19 08:21 Absolute Monos (auto) 0.7 10^3/uL (0.1-1.4) 11/29/19 08:21 Absolute Eos (auto) 0.1 10^3/uL (0.0-0.6) 11/29/19 08:21 Absolute Basos (auto) 0.0 10^3/uL (0.0-0.2) 11/29/19 08:21 Seg Neutrophils % 67.0 % (42-78) 11/29/19 08:21 Sodium 137.0 mmol/L (137-145) 11/29/19 08:21 Potassium 2.8 mmol/L (3.6-5.0) L* 11/29/19 08:21 Chloride 109 mmol/L (98-107) H 11/29/19 08:21 Carbon Dioxide 23 mmol/L (22-30) 11/29/19 08:21 Anion Gap 5 (5-19) 11/29/19 08:21 BUN 3 mg/dL (7-20) L 11/29/19 08:21 Creatinine 0.51 mg/dL (0.52-1.25) L 11/29/19 08:21 Est GFR ( Amer) > 60 (>60) 11/29/19 08:21 Est GFR (MDRD) Non-Af > 60 (>60) 11/29/19 08:21 Glucose 96 mg/dL (75-110) 11/29/19 08:21 Uric Acid 4.3 mg/dL (2.5-7.0) 11/28/19 11:09 Calcium 8.3 mg/dL (8.4-10.2) L 11/29/19 08:21 Magnesium 1.7 mg/dL (1.6-2.3) 11/29/19 08:21 Total Bilirubin 0.2 mg/dL (0.2-1.3) 11/29/19 08:21 Direct Bilirubin 0.0 mg/dL (0.0-0.4) 11/29/19 08:21 Neonat Total Bilirubin Not Reportable 11/29/19 08:21 Neonat Direct Bilirubin Not Reportable 11/29/19 08:21 Neonat Indirect Bili Not Reportable 11/29/19 08:21 AST 20 U/L (14-36) 11/29/19 08:21 ALT 10 U/L (<35) 11/29/19 08:21 Alkaline Phosphatase 94 U/L (38-126) 11/29/19 08:21 Lactate Dehydrogenase 183 U/L (120-246) 11/28/19 11:09 Total Protein 5.2 g/dL (6.3-8.2) L 11/29/19 08:21 Albumin 2.6 g/dL (3.5-5.0) L 11/29/19 08:21 Amylase 44 U/L (30-110) 11/28/19 11:09 Lipase 78.5 U/L (23-300) 11/28/19 11:09 Urine Color STRAW 11/28/19 12:18 Urine Appearance CLEAR 11/28/19 12:18 Urine pH 8.0 (5.0-9.0) 11/28/19 12:18 Ur Specific [place] 1.003 11/28/19 12:18 Urine Protein NEGATIVE mg/dL (NEGATIVE) 11/28/19 12:18 Urine Glucose (UA) NEGATIVE mg/dL (NEGATIVE) 11/28/19 12:18 Urine Ketones NEGATIVE mg/dL (NEGATIVE) 11/28/19 12:18 Urine Blood NEGATIVE (NEGATIVE) 11/28/19 12:18 Urine Nitrite NEGATIVE (NEGATIVE) 11/28/19 12:18 Urine Bilirubin NEGATIVE (NEGATIVE) 11/28/19 12:18 Urine Urobilinogen NEGATIVE mg/dL (<2.0) 11/28/19 12:18 Ur Leukocyte Esterase NEGATIVE (NEGATIVE) 11/28/19 12:18 Urine WBC (Auto) 1 /HPF 11/28/19 12:18 Urine RBC (Auto) 1 /HPF 11/28/19 12:18 Squamous Epi Cells Auto 1 /HPF 11/28/19 12:18 Urine Ascorbic Acid NEGATIVE (NEGATIVE) 11/28/19 12:18 Urine Opiates Screen NEGATIVE 11/28/19 12:18 Urine Methadone Screen NEGATIVE 11/28/19 12:18 Ur Barbiturates Screen NEGATIVE 11/28/19 12:18 Ur Phencyclidine Scrn NEGATIVE 11/28/19 12:18 Ur Amphetamines Screen NEGATIVE 11/28/19 12:18 U Benzodiazepines Scrn NEGATIVE 11/28/19 12:18 Urine Cocaine Screen NEGATIVE 11/28/19 12:18 U Marijuana (THC) Screen NEGATIVE 11/28/19 12:18 Plan Health Concerns: routine OB Plan of Treatment: rev S&S to report, continue PNV's, eat regular diet, add bananas Goals: no complications Time Spent: Less than 30 Minutes Stroke Is this a Stroke Patient?: No Stroke Pt being discharged on Anti-thrombolytic therapy?: No Reason(s) for not prescribing Anti-thrombolytic therapy:: Not indicated Reason(s) for not prescribing Statins therapy:: Not indicated Acute Heart Failure - Is this a Heart Failure Patient?: No Follow-up Appointment scheduled within 7 days?: Yes - f/u [facility]. regular appt
== END 2019-11-29 17:45 | disposition home or self-care (01) ==
LOC: LC 10:24 → LR 14:34 → 2S 21:45
PROVIDERS: ADMIT Student in an Organized Health Care Education/Training Program; ATTEND Student in an Organized Health Care Education/Training Program
DX: O26.893 Other specified pregnancy related conditions, third trimester (principal); E87.6 Hypokalemia; E83.42 Hypomagnesemia; O26.53 Maternal hypotension syndrome, third trimester; O21.2 Late vomiting of pregnancy; O14.93 Unspecified pre-eclampsia, third trimester; R19.7 Diarrhea, unspecified; M54.5 Low back pain; R29.898 Other symptoms and signs involving the musculoskeletal system; Z3A.35 35 weeks gestation of pregnancy; Z82.49 Family history of ischemic heart disease and other diseases of the circulatory system; Z87.440 Personal history of urinary (tract) infections; Z87.891 Personal history of nicotine dependence
CPT/HCPCS: 59025; 36415 ×2; 82150; 83615; 83690; 83735 ×2; 84550; 85025 ×2; 87070; 80053 ×2; 81001; 80307; 93005; 93010; J3490 ×3; J3475 ×2; J3411; J3480 ×2; J7030; J7120; G0378

== ENCOUNTER 2019-12-08 06:19 | Inpatient (IN) | payer MEDICAID ==
[2019-12-08] MEDS ORDERED: RINGERS SOLUTION,LACTATED 1,000 ML IV ONE (06:21)
[2019-12-08] MEDS ORDERED: RINGERS SOLUTION,LACTATED 1,000 ML IV PRN (06:21)
[2019-12-08] MEDS ORDERED: OXYTOCIN 10 UNIT/ML VIAL ONE (06:36)
[2019-12-08] MEDS ORDERED: LIDOCAINE 1% INJ-PF (10 MG/ML) 30 ML SDV ONE (06:36)
[2019-12-08] MEDS ORDERED: MISOPROSTOL 0.2 MG TABLET ONE (06:36)
[2019-12-08] MEDS ORDERED: OXYTOCIN/0.9 % SODIUM CHLORIDE 30 UNIT/500 ML RTUINJ ONE (06:36)
[2019-12-08] MEDS ORDERED: OXYTOCIN/0.9 % SODIUM CHLORIDE 30 UNIT/500 ML RTUINJ IV PRN (06:41)
[2019-12-08 07:34] LABS: ABSOLUTE BASOPHILS # (AUTO) 0.1 10^3/uL (0.0-0.2); ABSOLUTE EOSINOPHILS # (AUTO) 0.2 10^3/uL (0.0-0.6); ABSOLUTE LYMPHOCYTES (AUTO) 2.2 10^3/uL (0.5-4.7); ABSOLUTE MONOCYTES (AUTO) 0.9 10^3/uL (0.1-1.4); ABSOLUTE NEUT (AUTO) 10.7 10^3/uL (1.7-8.2); BASOPHILS % (AUTO) 0.4 % (0-2); EOSINOPHILS % (AUTO) 1.2 % (0-6); HEMATOCRIT 27.1 % (36.0-47.0); HEMOGLOBIN 9.5 g/dL (12.0-15.5); LYMPHOCYTES % (AUTO) 15.9 % (13-45); MEAN CORPUSCULAR HEMOGLOBIN 30.7 pg (27.0-33.4); MEAN CORPUSCULAR HGB CONC 35.1 g/dL (32.0-36.0); MEAN CORPUSCULAR VOLUME 88 fl (80-97); MONOCYTES % (AUTO) 6.5 % (3-13); PLATELET COUNT 277 10^3/uL (150-450); RED CELL DISTRIBUTION WIDTH 13.4 % (11.5-14.0); TOTAL CELLS COUNTED % (AUTO) 100 %; WHITE BLOOD COUNT 14.1 10^3/uL (4.0-10.5)
[2019-12-08] MEDS ORDERED: MISOPROSTOL 0.1 MG TABLET PV ONE (07:44)
[2019-12-08 07:50] LABS: APPEARANCE,URINE SLIGHTLY-CLOUDY; BILIRUBIN,URINE NEGATIVE (NEGATIVE); COLOR,URINE STRAW; GLUCOSE, URINE NEGATIVE (NEGATIVE); KETONES,URINE NEGATIVE (NEGATIVE); LEUKOCYTE ESTERASE,URINE NEGATIVE (NEGATIVE); NITRITE,URINE NEGATIVE (NEGATIVE); PROTEIN,URINE NEGATIVE (NEGATIVE); URINE SPECIFIC GRAVITY 1.003; UROBILINOGEN,URINE NEGATIVE mg/dL (<2.0)
[2019-12-08] MEDS ORDERED: MISOPROSTOL 0.1 MG TABLET ONE (07:55)
[2019-12-08 08:13] LABS: URINE AMPHETAMINES SCREEN NEGATIVE; URINE BARBITURATES SCREEN NEGATIVE; URINE BENZODIAZEPINES SCREEN NEGATIVE; URINE COCAINE SCREEN NEGATIVE; URINE MARIJUANA (THC) SCREEN NEGATIVE; URINE METHADONE SCREEN NEGATIVE; URINE PHENCYCLIDINE SCREEN NEGATIVE
--- NOTE | 2019-12-08 13:20 | L&D Progress Notes ---
PROGRESS NOTES Datetime Report Generated by CPN: 12/08/2019 13:20 PROGRESS NOTE Impression: Reassuring Heart Rate Procedures: Sterile Vag Exam Plan: Continue Present Management; Induction Informed Consent Obtained: Risks, Benefits and Alternatives Discussed Vital Signs : Reviewed; Within Normal Limits Comment: IOL for Pre-Eclampsia. Pt doing well, no complaints. S/p Cytotec. VE soft 1-2/50/-2, vtx. Will start Pitocin. Pt plans epidural when she is in labor. Attending MD is Dr Mcintyre. GBS negative LAST VAGINAL EXAM-NURSING Nursing Exam Dilitation: 1-2 Nursing Exam Effacement: 50 Nursing Exam Station: -2 Nursing Exam Contractions: irritability present MEMBRANES Membranes: Intact FETUS A Monitoring: External US FHR Category: Category I SIGNATURE SIGNATURE: [id number] Assignment: Lani Mcintyre MD Signature: with User ID: [email or web address] : with User ID: [email or web address]
[2019-12-08] MEDS ORDERED: MAG HYDROX/AL HYDROX/SIMETH SUSP 30 ML UDCUP PO ONE (16:30)
[2019-12-08] MEDS ORDERED: MAG HYDROX/AL HYDROX/SIMETH SUSP 30 ML UDCUP ONE (16:31)
[2019-12-08] MEDS ORDERED: CALCIUM CARBONATE 500 MG TAB.CHEW PO ONE (16:39)
[2019-12-08] MEDS ORDERED: FENTANYL/BUPIVACAINE/NS/PF 300 MCG/150 ML RTUINJ EPI ONE (18:39)
[2019-12-08] MEDS ORDERED: ROPIVACAINE HCL 0.2% INJ/PF (2 MG/ML) 20 ML SDV ONE (18:39)
[2019-12-08] MEDS ORDERED: EPHEDRINE SULFATE INJ 50 MG/1 ML AMPULE ONE (18:39)
[2019-12-09] MEDS ORDERED: NA PHOS,M-B/NA PHOS,DI-BA (ADULT) 133 ML ENEMA PR PRN (01:10)
[2019-12-09] MEDS ORDERED: ACETAMINOPHEN 650 MG SUPP.RECT PR PRN (01:10)
[2019-12-09] MEDS ORDERED: ACETAMINOPHEN WITH CODEINE #3 TABLET PO PRN ×2 (01:10)
[2019-12-09] MEDS ORDERED: PROMETHAZINE HCL INJ 25 MG/1 ML VIAL IV PRN (01:10)
[2019-12-09] MEDS ORDERED: BENZOCAINE/MENTHOL AEROSOL SPRAY 56 ML TOP PRN (01:10)
[2019-12-09] MEDS ORDERED: OXYTOCIN/0.9 % SODIUM CHLORIDE 30 UNIT/500 ML RTUINJ IV PRN (01:10)
[2019-12-09] MEDS ORDERED: MEASLES,MUMPS&RUBELLA VACC/PF 0.5 ML VIAL SUBCUT PRN (01:10)
[2019-12-09] MEDS ORDERED: MAGNESIUM HYDROXIDE SUSP 30 ML UDCUP PO PRN (01:10)
[2019-12-09] MEDS ORDERED: DIPHENHYDRAMINE HCL 25 MG CAPSULE PO PRN (01:10)
[2019-12-09] MEDS ORDERED: ACETAMINOPHEN 325 MG TABLET PO PRN (01:10)
[2019-12-09] MEDS ORDERED: DIBUCAINE 1% OINTMENT 28 GM TP PRN (01:10)
[2019-12-09] MEDS ORDERED: DIPH/PERTUSS(ACELL)/TETANUS VAC/PF 0.5 ML SYR (>=10YO) IM PRN (01:10)
[2019-12-09] MEDS ORDERED: PSEUDOEPHEDRINE HCL 30 MG TABLET PO PRN (01:10)
[2019-12-09] MEDS ORDERED: PROMETHAZINE HCL 25 MG SUPP.RECT PR PRN (01:10)
[2019-12-09] MEDS ORDERED: GLYCERIN/WITCH HAZEL LEAF 1 EACH MED..WIPE TP PRN (01:10)
[2019-12-09] MEDS ORDERED: ZOLPIDEM TARTRATE 5 MG TABLET PO PRN (01:10)
[2019-12-09] MEDS ORDERED: PROMETHAZINE HCL 25 MG TABLET PO PRN (01:10)
--- NOTE | 2019-12-09 02:20 | Delivery Summary ---
Del Sum A-C Datetime Report Generated by CPN: 12/09/2019 02:20 DELIVERY PERSONNEL DELIVERY PERSONNEL: [id number] Delivery Doctor:: Lani Mcintyre MD Labor and Delivery Nurse:: Reina Fox RN Labor and Delivery Nurse:: Gema Anderson RN [place] Operator/SENIOR IT ASSISTANT: Alivia Ross, ST MATERNAL INFORMATION Delivery Anesthesia: Epidural Medications After Delivery: Pitocin 30 Units in 500ml NS/D5W Delivery QBL: 100 Maternal Complications: Other Other Maternal Complications: AMA, Preeclampsia LABOR SUMMARY EDC: 12/29/2019 00:00 No. Babies in Womb: 1 Attempted: No Labor Anesthesia: Epidural LABOR INFORMATION Reason for Induction: Gestational Hypertension; Pre-Eclampsia Onset of Labor: 12/08/2019 22:13 Complete Dilatation: 12/09/2019 00:44 Cervical Ripening Agents: Cytotec @ Oxytocin: Induction Group B Beta Strep: negative Antibiotics # of Doses: n/a Steroids Given: None Reason Steroids Not Administered: Not Applicable MEMBRANES Membranes Rupture Method: Artificial Rupture of Membranes: 12/08/2019 15:02 Length of Rupture (hr): 9.97 Amniotic Fluid Color: Clear Amniotic Fluid Amount: Small Amniotic Fluid Odor: Normal STAGES OF LABOR Stage 1 hr: 2 Stage 1 min: 31 Stage 2 hr: 0 Stage 2 min: 16 Stage 3 hr: 0 Stage 3 min: 4 Total Time in Labor hr: 2 Total Time in Labor min: 51 VAGINAL DELIVERY Episiotomy: None Laceration #1: None Laceration Extension #1: N/A Sponge Count Correct: Yes Sharps Count Correct: Yes CSECTION DELIVERY Primary Indication: N/A Secondary Indication: N/A CSection Incidence: N/A Labor: N/A Elective: N/A CSection Incision: N/A Uterine Closure: Double-layer closure BABY A INFORMATION Infant Delivery Date/Time: 12/09/2019 01:00 Method of Delivery: Vaginal Nurse Controlled Delivery: No Born in Route : No : N/A Forceps: N/A Vacuum Extraction: N/A Shoulder Dystocia : No PRESENTATION/POSITION BABY A Presentation: Cephalic Cephalic Presentation: Vertex Vertex Position: Right Occipital Anterior Breech Presentation: N/A PLACENTA INFORMATION BABY A Placenta Delivery Time : 12/09/2019 01:04 Placenta Method of Delivery: Spontaneous Placenta Status: Retained SCORES BABY A Heart Rate 1 min: >100 bpm Resp Effort 1 min: Good Cry Reflex Irritability 1 min: Cough or Sneeze or Pulls Away Muscle Tone 1 min: Active Motion Color 1 min: Body [place], Extremities Blue Resuscitation Effort 1 min: Tactile Stimulation SCORE 1 MIN: 9 Heart Rate 5 min: >100 bpm Resp Effort 5 min: Good Cry Reflex Irritability 5 min: Cough or Sneeze or Pulls Away Muscle Tone 5 min: Active Motion Color 5 min: Body [place], Extremities Blue SCORE 5 MIN: 9 INFORMATION BABY A Gestational Age at Delivery: 37.1 Gestational Status: Early Term- 37- 38.6 Weeks Infant Outcome : Liveborn Condition : Stable Sex: Male IDENTIFICATION BABY A Verification Date/Time: 12/09/2019 01:07 ID Band Number: [id number] Mother's Name Verified: Yes RN Verifying : Rain Winslow, RN Additional Verifying Personnel: S Green, ST WEIGHT/LENGTH BABY A Birthweight (gm): 3004 Infant Weight (lb): 6 Weight (oz): 10 Length (in): 17.50 Length (cm): 44.45 CORD INFORMATION BABY A No. Cord Vessels: 3 Nuchal Cord : Around Neck x1, Loose Cord Blood Taken: Yes-For Storage (Mom's Blood type +) Infant Suction: None ASSESSMENT BABY A Complications: None Physical Findings at Delivery: Within Normal Limits Infant Respirations: Appears Normal Skin to Skin: Yes Estimator Printing/ALS Called : No Transferred To: Remains with Mother BABY B INFORMATION : N/A SIGNATURES Signature: with User ID: [email or web address] : with User ID: [email or web address]
[2019-12-09] MEDS: IBUPROFEN 800 MG TABLET PO SCH ×4 (03:47→22:23)
--- NOTE | 2019-12-09 10:32 | PDOC PROGRESS REPORT ---
Subjective-OB Progress Note for:: 12/09/19 - Delivery Day, doing well, UOB, voiding, denies headache. A+, rubella Immune. s/p IOL for Pre-eclampsia Physical Exam (OB) Vital Signs: Temp Pulse Resp BP Pulse Ox 97.7 F 49 L 16 120/65 100 12/09/19 07:14 12/09/19 07:14 12/09/19 07:14 12/09/19 07:14 12/09/19 07:14 Intake & Output 12/08/19 12/09/19 12/10/19 06:59 06:59 06:59 Intake Total 800 Balance 800 Weight 86.8 kg - General General Appearance: Appears well, Alert In distress: None - PIH/Pre-Eclampsia DTR's: 2 + Clonus: Negative Headache: Absent Epigastric Pain: No Visual Changes: No - Lochia Lochia Amount: Scant < 10 ml Lochia Color: Rubra/Red - Abdomen Description: Soft, Round Hernia Present: No Fundal Description: Firm, Midline Fundal Height: u/u - u/2 - Respiratory Respiratory Status: No respiratory distress - Abdominal Distension: No distension Tenderness: Nontender - Genitourinary Genitourinary Note: voiding - Extremities Upper extremity: Normal inspection Lower extremities: Normal inspection Objective-Diagnostic Laboratory: 12/08/19 07:14 Assessment and Plan(PN) - Assessment and Plan (1) Pre-eclampsia affecting childbirth Is this a current diagnosis for this admission?: Yes (2) (normal spontaneous vaginal delivery) Is this a current diagnosis for this admission?: Yes (3) Third trimester Is this a current diagnosis for this admission?: Yes Plan:: BP precautions, ambulation encouraged, Routine PP orders - Time Spent with Patient Time with patient: Less than 15 minutes - Disposition Anticipated Discharge: Home Anticipated DC Timeframe: within 48 hours
[2019-12-09] MEDS: FAMOTIDINE 20 MG TABLET PO SCH ×2 (10:48→22:23)
[2019-12-09] MEDS: PRENATAL VITAMIN W DHA CAPSULE PO SCH (10:48)
[2019-12-09] MEDS: DOCUSATE SODIUM 100 MG CAPSULE PO SCH ×2 (10:48→18:08)
[2019-12-09] MEDS: FERROUS SULFATE 325 MG TABLET PO SCH ×2 (10:48→18:08)
[2019-12-09] MEDS: SENNOSIDES/DOCUSATE 8.6-50 MG 1 EACH TABLET PO SCH (10:48)
[2019-12-10] MEDS: IBUPROFEN 800 MG TABLET PO SCH ×3 (05:46→21:03)
[2019-12-10 07:38] LABS: HEMATOCRIT 28.8 % (36.0-47.0); HEMOGLOBIN 9.9 g/dL (12.0-15.5); MEAN CORPUSCULAR HEMOGLOBIN 30.4 pg (27.0-33.4); MEAN CORPUSCULAR HGB CONC 34.4 g/dL (32.0-36.0); MEAN CORPUSCULAR VOLUME 88 fl (80-97); PLATELET COUNT 267 10^3/uL (150-450); RED BLOOD COUNT 3.27 10^6/uL (3.72-5.28); RED CELL DISTRIBUTION WIDTH 13.5 % (11.5-14.0); WHITE BLOOD COUNT 14.4 10^3/uL (4.0-10.5)
[2019-12-10] MEDS: FAMOTIDINE 20 MG TABLET PO SCH ×2 (09:54→21:03)
[2019-12-10] MEDS: SENNOSIDES/DOCUSATE 8.6-50 MG 1 EACH TABLET PO SCH (09:54)
[2019-12-10] MEDS: DOCUSATE SODIUM 100 MG CAPSULE PO SCH ×2 (09:54→18:07)
[2019-12-10] MEDS: PRENATAL VITAMIN W DHA CAPSULE PO SCH (09:54)
[2019-12-10] MEDS: FERROUS SULFATE 325 MG TABLET PO SCH ×2 (09:54→18:07)
--- NOTE | 2019-12-10 10:05 | PDOC PROGRESS REPORT ---
Subjective-OB Progress Note for:: 12/10/19 - PP day #1, doing well, UOB, voiding denies headache or blurred vision. A+, rubella immune. IOL for Pre-eclampsia Physical Exam (OB) Vital Signs: Temp Pulse Resp BP Pulse Ox 97.6 F 50 L 16 115/52 L 100 12/10/19 03:08 12/10/19 03:08 12/10/19 03:08 12/10/19 03:08 12/10/19 03:08 Intake & Output 12/09/19 12/10/19 12/11/19 06:59 06:59 06:59 Intake Total 800 800 Balance 800 800 - General General Appearance: Appears well, Alert In distress: None - PIH/Pre-Eclampsia DTR's: 1 + Clonus: Negative Headache: Absent Epigastric Pain: No Visual Changes: No - Lochia Lochia Amount: Small 10-25 ml Lochia Color: [place]/Red - Abdomen Description: Soft, Round Hernia Present: No Fundal Description: Firm, Midline Fundal Height: u/u - u/2 - Respiratory Respiratory Status: No respiratory distress - Abdominal Distension: No distension - Genitourinary Genitourinary Note: voiding - Extremities Upper extremity: Normal inspection Lower extremities: Edema - Neurological Cognition: Normal Orientation: AAOx4 - Psychological Associated symptoms: Normal affect, Normal mood - Skin Skin Temperature: Warm Skin Moisture: Dry Objective-Diagnostic Laboratory: 12/10/19 07:03 12/10/19 07:03 WBC 14.4 H RBC 3.27 L Hgb 9.9 L Hct 28.8 L MCV 88 MCH 30.4 MCHC 34.4 RDW 13.5 Plt Count 267 Assessment and Plan(PN) - Assessment and Plan (1) Pre-eclampsia affecting childbirth Is this a current diagnosis for this admission?: Yes (2) (normal spontaneous vaginal delivery) Is this a current diagnosis for this admission?: Yes (3) Third trimester Is this a current diagnosis for this admission?: Yes Plan:: Routine PP orders, ambulation encouraged - Time Spent with Patient Time with patient: Less than 15 minutes Medications reviewed and adjusted accordingly: Yes - Disposition Anticipated Discharge: Home Anticipated DC Timeframe: within 24 hours
[2019-12-11] MEDS: IBUPROFEN 800 MG TABLET PO SCH (05:35)
--- NOTE | 2019-12-11 10:00 | PDOC DISCHARGE SUMMARY ---
Impression - Admit/DC Date/PCP Admission Date/Primary Care Provider: 12/08/19 06:19 Discharge Date: 12/11/19 - Discharge Diagnosis (1) Pre-eclampsia affecting childbirth Is this a current diagnosis for this admission?: Yes (2) (normal spontaneous vaginal delivery) Is this a current diagnosis for this admission?: Yes - Additional Information Discharge Diet: Regular Discharge Activity: Balance Activity w/Rest, Pelvic Rest Prescriptions: Ibuprofen [Motrin 800 mg Tablet] 800 mg PO Q8HP PRN #60 tablet PRN Reason: Home Medications: Vit,Calc76/Iron/Folic [Pnv 29-1 Tablet] 1 tab PO DAILY 11/25/19 Ibuprofen [Motrin 800 mg Tablet] 800 mg PO Q8HP PRN #60 tablet 12/11/19 Results Laboratory Results: WBC 14.4 10^3/uL (4.0-10.5) H 12/10/19 07:03 RBC 3.27 10^6/uL (3.72-5.28) L 12/10/19 07:03 Hgb 9.9 g/dL (12.0-15.5) L 12/10/19 07:03 Hct 28.8 % (36.0-47.0) L 12/10/19 07:03 MCV 88 fl (80-97) 12/10/19 07:03 MCH 30.4 pg (27.0-33.4) 12/10/19 07:03 MCHC 34.4 g/dL (32.0-36.0) 12/10/19 07:03 RDW 13.5 % (11.5-14.0) 12/10/19 07:03 Plt Count 267 10^3/uL (150-450) 12/10/19 07:03 Lymph % (Auto) 15.9 % (13-45) 12/08/19 07:14 [place] % (Auto) 6.5 % (3-13) 12/08/19 07:14 Eos % (Auto) 1.2 % (0-6) 12/08/19 07:14 Baso % (Auto) 0.4 % (0-2) 12/08/19 07:14 Absolute Neuts (auto) 10.7 10^3/uL (1.7-8.2) H 12/08/19 07:14 Absolute Lymphs (auto) 2.2 10^3/uL (0.5-4.7) 12/08/19 07:14 Absolute Monos (auto) 0.9 10^3/uL (0.1-1.4) 12/08/19 07:14 Absolute Eos (auto) 0.2 10^3/uL (0.0-0.6) 12/08/19 07:14 Absolute Basos (auto) 0.1 10^3/uL (0.0-0.2) 12/08/19 07:14 Seg Neutrophils % 76.0 % (42-78) 12/08/19 07:14 Urine Color STRAW 12/08/19 06:35 Urine Appearance SLIGHTLY-CLOUDY 12/08/19 06:35 Urine pH 8.0 (5.0-9.0) 12/08/19 06:35 Ur Specific [place] 1.003 12/08/19 06:35 Urine Protein NEGATIVE mg/dL (NEGATIVE) 12/08/19 06:35 Urine Glucose (UA) NEGATIVE mg/dL (NEGATIVE) 12/08/19 06:35 Urine Ketones NEGATIVE mg/dL (NEGATIVE) 12/08/19 06:35 Urine Blood NEGATIVE (NEGATIVE) 12/08/19 06:35 Urine Nitrite NEGATIVE (NEGATIVE) 12/08/19 06:35 Urine Bilirubin NEGATIVE (NEGATIVE) 12/08/19 06:35 Urine Urobilinogen NEGATIVE mg/dL (<2.0) 12/08/19 06:35 Ur Leukocyte Esterase NEGATIVE (NEGATIVE) 12/08/19 06:35 Urine Ascorbic Acid NEGATIVE (NEGATIVE) 12/08/19 06:35 Urine Opiates Screen NEGATIVE 12/08/19 06:35 Urine Methadone Screen NEGATIVE 12/08/19 06:35 Ur Barbiturates Screen NEGATIVE 12/08/19 06:35 Ur Phencyclidine Scrn NEGATIVE 12/08/19 06:35 Ur Amphetamines Screen NEGATIVE 12/08/19 06:35 U Benzodiazepines Scrn NEGATIVE 12/08/19 06:35 Urine Cocaine Screen NEGATIVE 12/08/19 06:35 U Marijuana (THC) Screen NEGATIVE 12/08/19 06:35 RPR NONREACTIVE (NONREACTIVE) 12/08/19 07:14 Blood Type A POSITIVE 12/08/19 07:14 Antibody Screen NEGATIVE 12/08/19 07:14 Plan Plan of Treatment: follow up in one week at [facility] for blood pressure check
[2019-12-11] MEDS: PRENATAL VITAMIN W DHA CAPSULE PO SCH (10:42)
[2019-12-11] MEDS: DOCUSATE SODIUM 100 MG CAPSULE PO SCH (10:42)
[2019-12-11] MEDS: FAMOTIDINE 20 MG TABLET PO SCH (10:42)
[2019-12-11] MEDS: SENNOSIDES/DOCUSATE 8.6-50 MG 1 EACH TABLET PO SCH (10:43)
[2019-12-11] MEDS: FERROUS SULFATE 325 MG TABLET PO SCH (10:43)
[2019-12-11 10:45] VITALS: BP 130/71
--- NOTE | 2019-12-22 07:38 | Admission Physical ---
Datetime Report Generated by CPN: 12/22/2019 07:38 CURRENT ADMISSION Chief Complaint: Uterine Contractions Chief Complaint: Other Chief Complaint Other: sent from the office for PreE w/u Indication for Induction: Not Applicable Admit Impression : Term, Intrauterine ; Active Labor Admit Impression : , Intrauterine Admit Plan: Admit to Unit; Initiate Labor Protocol Admit Plan: Admit to Unit; Observation/Evaluation Admit Plan- Other: Now reports n/v since the wednesday before 11/16 ALLERGIES Medication Allergies: No Medication Allergies: No Known Allergies (12/08/2019) Medication Allergies: No Known Allergies (11/28/2019) Medication Allergies: No Known Allergies (11/25/2019) Medication Allergies: No Known Allergies (04/22/2012) Latex: No Latex Allergies OBSTETRICAL HISTORY EDC: 12/29/2019 00:00 : 6 Para: 2 Term: 2 : 0 SAB: 2 IAB: 0 Ectopic: 1 Livin Cesareans: 0 VBACs: 0 Multiple Births: 0 Gestational Diabetes: No Rh Sensitization: No Incompetent Cervix: No STACEY: No Infertility: No ART Treatment: No Uterine Anomaly: No IUGR: No Hx Previous C/S: No Macrosomia: No Hx Loss/Stillborn: No PIH: No Hx : No Placenta Previa/Abruption: No Depression/PP Depression: No PTL/PROM: No Post Hemorrhage: No Current Procedures: Ultrasound Obstetrical History Comments: G1: 1996 SAB G2: 1998 G3: 2004 SAB G4: 2009 ECTOPIC G5: 2011 G6: current SEE RECORDS Alcohol: No Marijuana : No Cocaine: No Other Illicit Drugs: No Cigarettes: Current Some Day Smoker. 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 Surgery: No Heart Disease: No Hosp/Surgery: Yes Autoimmune Disorder: No Anesthetic Complications: No Kidney Disease: Yes Abnormal Pap Smear: No Neuro/Epilepsy: No Psychiatric Disorders: No Other Medical Diseases: No Hepatitis/Liver Disease: No Significant Family History: No Varicosities/Phlebitis: No Trauma/Violence : No Thyroid Dysfunction: No Medical History Comments: UTI, childbirth, GHTN INFECTIOUS HISTORY Gonorrhea: No Genital Herpes: No Chlamydia: No Tuberculosis: No Syphilis: No Hepatitis: No HIV/AIDS Exposure: No Rash or Viral Illness: No HPV: Yes Infectious History Comments: HPV PHYSICAL EXAM General: Normal General: Normal HEENT: Normal HEENT: Normal Neurologic: Normal Neurologic: Normal Thyroid: Normal Thyroid: Deferred Heart: Normal Heart: Normal Lungs: Normal Lungs: Normal Breast: Normal Breast: Deferred Back: Normal Back: Normal Abdomen: Normal Abdomen: Normal Genitourinary Exam: Normal Genitourinary Exam: Normal Extremities: Normal Extremities: Normal DTRs: Normal DTRs: Normal Pelvic Type: Adequate Pelvic Type: Adequate Vital Signs: Reviewed; Within Normal Limits Vital Signs: Reviewed VAGINAL EXAM Dilatation: 1 Effacement: 50 Station: -2 Contraction Comments: Regular MEMBRANES Membranes: Intact Membranes: Intact FETUS A EGA: 37.0 EGA: 35.4 Monitoring: External US FHR- Baseline: 140 FHR- Baseline: 120 Variability: Moderate 6-25bpm Variability: Moderate 6-25bpm Accelerations: 15X15 Accelerations: 15X15 Decelerations: None Decelerations: None FHR Category: Category I FHR Category: Category I Presentation: Vertex Admit Comment: at 37.1 wks EGA for IOL, complicated by gHTN -Some irregular contractions, No VB or LOF -Admit to LDR -NPO and IVFs: LR at 125 cc/hr continuous after 1 liter given -CEFM and toco -GBS negative -Hx of , anticipate -May have epidural for pain control -Plan for Cytotec then Pitocin induction with AROM when able Admit Comment: 39yo at 35+4 ega presents from the office for PreE w/u due to elevated 24 hr UTP. However, on arrival BPs were normal. Normal HR. NST reactive. She however reports n/v initially for 24 hours but after labs reviewed with patient and significantly abnl electrolytes, the patient now reports that it has been going on since before the 17 of november. Will obtain consult from Hospitalist. Also will obtain EKG. banana bag ordered. PLANS FOR LABOR AND DELIVERY Labor and Delivery: None Pain Management: Epidural Feeding Preference: Formula Benefit of Breast Feed Discussed: Yes Circumcision: Yes INFORMED CONSENT Informed Consent Obtained: Vaginal Delivery; Risks, Benefits and Alternatives Discussed Informed Consent Obtained: Risks, Benefits and Alternatives Discussed Signature: with User ID: [email or web address], Addendum/Amendment: complicated by gHTN with mild preeclampsia necessitating delivery at 37 weeks. Also complicated by advanced maternal age. Signature: with User ID: [email or web address] Signature: with User ID: [email or web address]
== END 2019-12-11 11:00 | disposition home or self-care (01) | DRG 807 ==
LOC: LR 06:19 → 2S 12-09 03:05
PROVIDERS: ADMIT Obstetrics & Gynecology; ATTEND Obstetrics & Gynecology
PROC: 10907ZC Drainage of Amniotic Fluid, Therapeutic from Products of Conception, Via Natural or Artificial Opening (ICD-10-PCS; 2019-12-08)
PROC: 10E0XZZ Delivery of Products of Conception, External Approach (ICD-10-PCS; principal; 2019-12-09)
DX: O14.04 Mild to moderate pre-eclampsia, complicating childbirth (principal); F17.210 Nicotine dependence, cigarettes, uncomplicated; O99.334 Smoking (tobacco) complicating childbirth; O69.81X0 Labor and delivery complicated by cord around neck, without compression, not applicable or unspecified; Z3A.37 37 weeks gestation of pregnancy; Z37.0 Single live birth
CPT/HCPCS: 1967; 36415; 80307; 81005; 85025; 85027; 86592; 86850; 86900; 86901; C1758; J2590; J2795; J3010; J3490